=== PATIENT | male | born 1985 | race Two or more races ===

== ENCOUNTER 2018-10-30 15:55 | Inpatient (IN) | payer OTHER ==
[~2018-10-30] VITALS: Ht 172.7 cm; Wt 91.5 kg
[2018-10-30] MEDS ORDERED: SODIUM CHLORIDE FLUSH 10ML SYR IVF ONE (16:00)
[2018-10-30 16:34] LABS: BASOPHILS # (AUTO) 0.01 x10^3/uL (0-0.1); BASOPHILS % (AUTO) 0 % (0-1); EOSINOPHILS % (AUTO) 0 % (1-7); LYMPHOCYTES # (AUTO) 1.05 x10^3/uL (1-3.4); LYMPHOCYTES % (AUTO) 9 % (22-44); MD NO; MEAN CORPUSCULAR HEMOGLOBIN 32.2 pg (27.5-34.5); MEAN CORPUSCULAR HGB CONC 34.3 g/dL (33.2-36.2); MEAN CORPUSCULAR VOLUME 93.8 fL (81-97); MONOCYTES # (AUTO) 0.46 x10^3/uL (0.2-0.8); MONOCYTES % (AUTO) 4 % (2-9); NEUTROPHILS # (AUTO) 9.92 x10^3/uL (1.8-6.8); NEUTROPHILS % (AUTO) 87 % (42-75); PLATELET COUNT 262 x10^3/uL (130-400); RED BLOOD COUNT 5.44 x10^6/uL (4.38-5.82); RED CELL DISTRIBUTION WIDTH 12.9 % (9.4-14.8)
[2018-10-30 16:45] LABS: ALANINE AMINOTRANSFERASE 17 U/L (12-78); ALBUMIN 3.7 g/dL (3.4-5.0); ANION GAP 10 mmol/L (5-15); CALCIUM 9.1 mg/dL (8.5-10.1); CHLORIDE 98 mmol/L (98-107); CREATININE 1.15 mg/dL (0.7-1.3)
[2018-10-30 16:47] LABS: ALKALINE PHOSPHATASE 65 U/L (45-117); BILIRUBIN,TOTAL 0.9 mg/dL (0.2-1.0); TOTAL PROTEIN 8.2 g/dL (6.4-8.2)
[2018-10-30] MEDS ORDERED: OMNIPAQUE 350 MG/ML, 100ML BOTTLE ONE (17:19)
[2018-10-30] MEDS ORDERED: CEFTRIAXONE PMX 1GM/50ML 50 ML ONE (17:54)
[2018-10-30] MEDS ORDERED: METRONIDAZOLE PMX 500MG/100ML 100 ML IV ONE (18:00)
[2018-10-30] MEDS ORDERED: SODIUM CHLORIDE 0.9%, 500ML IVBOLUS ONE (18:00)
[2018-10-30] MEDS ORDERED: CEFTRIAXONE PMX 1GM/50ML 50 ML IV ONE (18:00)
[2018-10-30] MEDS ORDERED: BUPIVACAINE/PF-EPI 0.5% 1:200K ONE (18:25)
[2018-10-30] MEDS ORDERED: BUPIVACAINE/PF-EPI 0.5% 1:200K IM ONE (19:19)
[2018-10-30] MEDS ORDERED: PROPOFOL 10 MG/ML, 20ML ONE (19:43)
[2018-10-30] MEDS ORDERED: ROCURONIUM 10 MG/ML,10ML ONE (19:43)
[2018-10-30] MEDS ORDERED: ONDANSETRON 2MG/ML, 2ML ONE (19:43)
[2018-10-30] MEDS ORDERED: DEXAMETHASONE 4 MG/ML, 1ML ONE (19:43)
[2018-10-30] MEDS ORDERED: GLYCOPYRROLATE 0.2MG/1ML, 5ML ONE (19:43)
[2018-10-30] MEDS ORDERED: SUCCINYLCHOLINE 20 MG/ML, 10ML ONE (19:43)
[2018-10-30] MEDS ORDERED: KETOROLAC 30 MG/1 ML ONE (19:43)
[2018-10-30] MEDS ORDERED: NEOSTIGMINE 1 MG/ML, 10ML ONE (19:43)
[2018-10-30] MEDS ORDERED: FENTANYL PF 100 MCG/2ML ONE ×2 (19:44→19:53)
[2018-10-30] MEDS ORDERED: SCOPOLAMINE PATCH, 1.5MG PATCH.TD72 TD ONE (20:39)
[2018-10-30] MEDS ORDERED: HYDROmorphone 2 MG/ML, 1ML ONE (20:50)
[2018-10-30] MEDS: HYDROmorphone 2 MG/ML, 1ML IVPush PRN ×3 (20:51→21:07)
[2018-10-30] MEDS ORDERED: LABETALOL 5MG/ML, 20ML IV PRN (21:00)
[2018-10-30] MEDS ORDERED: hydrALAzine 20 MG/ML, 1ML IV PRN (21:00)
[2018-10-30] MEDS ORDERED: DIPHENHYDRAMINE 50 MG/ML, 1ML IVPush PRN (21:00)
[2018-10-30] MEDS ORDERED: METOPROLOL 1 MG/ML, 5ML IV PRN (21:00)
[2018-10-30] MEDS ORDERED: MEPERIDINE/PF 25MG/0.5ML IVPush PRN (21:00)
[2018-10-30] MEDS ORDERED: FENTANYL PF 100 MCG/2ML IV PRN (21:00)
[2018-10-30] MEDS ORDERED: SCOPOLAMINE PATCH, 1.5MG PATCH.TD72 TD PRN (21:00)
[2018-10-30] MEDS ORDERED: DIAZEPAM 5 MG/ML, 2ML IVPush PRN (21:00)
[2018-10-30] MEDS ORDERED: OXYcodone 5 MG/5 ML ORAL.SOL UDC PO PRN (21:00)
[2018-10-30] MEDS ORDERED: LORazepam 2 MG/ML, 1ML IVPush PRN (21:00)
[2018-10-30] MEDS ORDERED: PROCHLORPERAZINE 5 MG/ML, 2ML IV PRN (21:00)
[2018-10-30] MEDS ORDERED: PROMETHAZINE 25 MG/ML, 1ML IV PRN (21:00)
[2018-10-30] MEDS ORDERED: HALOPERIDOL 5 MG/ML IV PRN (21:00)
[2018-10-30] MEDS ORDERED: PROMETHAZINE 25 MG/ML, 1ML ONE (21:11)
[2018-10-30] MEDS ORDERED: HYDROcodone/APAP 5/325 TABLET PO PRN (22:30)
[2018-10-30] MEDS ORDERED: LORazepam 2 MG/ML, 1ML IV PRN (22:30)
[2018-10-30] MEDS ORDERED: morphine SULFATE 10 MG/ML, 1ML IV PRN (22:30)
[2018-10-30] MEDS ORDERED: LORazepam 1MG TABLET PO PRN (22:30)
[2018-10-30] MEDS: CEFOTETAN PMX 1GM/50ML 50 ML IVPB SCH (23:10)
[2018-10-30] MEDS: POTASSIUM CHLORIDE 20 MEQ in LACTATED RINGERS 1,000 ML IV SCH (23:49)
[2018-10-30] MEDS: METRONIDAZOLE PMX 500MG/100ML 100 ML IVPB SCH (23:49)
[2018-10-31 03:48] VITALS: BP 114/69
[2018-10-31 05:39] LABS: MEAN CORPUSCULAR HEMOGLOBIN 32.2 pg (27.5-34.5); MEAN CORPUSCULAR VOLUME 94.9 fL (81-97); MEAN PLATELET VOLUME 9.1 fL (7.4-10.4); PLATELET COUNT 217 x10^3/uL (130-400); RED BLOOD COUNT 4.71 x10^6/uL (4.38-5.82); RED CELL DISTRIBUTION WIDTH 13.5 % (9.4-14.8)
[2018-10-31 06:16] LABS: MD YES
[2018-10-31 06:18] LABS: BAND#(MANUAL) 0.96 x10^3/uL; BANDS%(MANUAL) 8 % (0-7); LYMPH#(MANUAL) 1.08 x10^3/uL (1-3.4); LYMPHS% (MANUAL) 9 % (22-44); MONOS#(MANUAL) 0.48 x10^3/uL (0.3-2.7); MONOS% (MANUAL) 4 % (2-9); SEG#(MANUAL) 9.48 x10^3/uL (1.8-6.8); SEGS% (MANUAL) 79 % (42-75)
[2018-10-31 06:19] LABS: <PLATELET ESTIMATE> ADEQUATE; <PLT MORPHOLOGY> NORMAL PLT MORPH; <RBC MORPHOLOGY> NORMAL
[2018-10-31 07:20] VITALS: BP 124/58
[2018-10-31] MEDS: METRONIDAZOLE PMX 500MG/100ML 100 ML IVPB SCH (07:46)
[2018-10-31] MEDS: ENOXAPARIN 40 MG/0.4 ML SQ SCH (07:47)
[2018-10-31] MEDS: HYDROmorphone 2 MG/ML, 1ML IVPush PRN ×3 (08:11→16:32)
[2018-10-31] MEDS: POTASSIUM CHLORIDE 20 MEQ in LACTATED RINGERS 1,000 ML IV SCH ×2 (08:11→16:24)
[2018-10-31] MEDS: CEFOTETAN PMX 1GM/50ML 50 ML IVPB SCH (11:19)
[2018-10-31] MEDS: ONDANSETRON 2MG/ML, 2ML IV PRN ×2 (11:25→19:36)
[2018-10-31 14:25] VITALS: BP 122/71
[2018-10-31 19:19] VITALS: BP 123/92
[2018-10-31] MEDS: OXYcodone/APAP 5/325MG TABLET PO PRN (20:50)
[2018-11-01 00:30] VITALS: BP 123/95
[2018-11-01] MEDS: POTASSIUM CHLORIDE 20 MEQ in LACTATED RINGERS 1,000 ML IV SCH ×3 (00:39→20:57)
[2018-11-01] MEDS ORDERED: CALCIUM CARBONATE 500 MG TAB.CHEW ONE (06:02)
[2018-11-01] MEDS: CEFOTETAN PMX 1GM/50ML 50 ML IV SCH ×2 (06:02→17:31)
[2018-11-01] MEDS: CALCIUM CARBONATE 500 MG TAB.CHEW PO PRN ×2 (06:03→14:03)
[2018-11-01] MEDS: METRONIDAZOLE PMX 500MG/100ML 100 ML IV SCH ×3 (06:52→22:30)
[2018-11-01 07:10] VITALS: BP 125/87
[2018-11-01] MEDS: ENOXAPARIN 40 MG/0.4 ML SQ SCH (08:19)
[2018-11-01 09:11] LABS: MEAN CORPUSCULAR HEMOGLOBIN 31.9 pg (27.5-34.5); MEAN CORPUSCULAR HGB CONC 33.7 g/dL (33.2-36.2); MEAN CORPUSCULAR VOLUME 94.5 fL (81-97); MEAN PLATELET VOLUME 8.6 fL (7.4-10.4); PLATELET COUNT 265 x10^3/uL (130-400); RED BLOOD COUNT 5.07 x10^6/uL (4.38-5.82); RED CELL DISTRIBUTION WIDTH 13.3 % (9.4-14.8)
[2018-11-01] MEDS: OXYcodone/APAP 5/325MG TABLET PO PRN ×2 (09:29→14:04)
[2018-11-01 09:50] LABS: BASOPHILS # (AUTO) 0.01 x10^3/uL (0-0.1); BASOPHILS % (AUTO) 0 % (0-1); EOSINOPHILS # (AUTO) 0.01 x10^3/uL (0-0.4); EOSINOPHILS % (AUTO) 0 % (1-7); LYMPHOCYTES # (AUTO) 0.98 x10^3/uL (1-3.4); LYMPHOCYTES % (AUTO) 8 % (22-44); MD SCAN; MONOCYTES # (AUTO) 0.45 x10^3/uL (0.2-0.8); MONOCYTES % (AUTO) 4 % (2-9); NEUTROPHILS % (AUTO) 89 % (42-75)
[2018-11-01 14:35] VITALS: BP 126/85
[2018-11-01 20:32] VITALS: BP 130/68
[2018-11-02] MEDS: OXYcodone/APAP 5/325MG TABLET PO PRN ×4 (01:56→22:13)
[2018-11-02 02:03] VITALS: BP 126/84
[2018-11-02 05:25] LABS: BASOPHILS # (AUTO) 0.03 x10^3/uL (0-0.1); BASOPHILS % (AUTO) 0 % (0-1); EOSINOPHILS # (AUTO) 0.02 x10^3/uL (0-0.4); EOSINOPHILS % (AUTO) 0 % (1-7); LYMPHOCYTES # (AUTO) 1.26 x10^3/uL (1-3.4); LYMPHOCYTES % (AUTO) 12 % (22-44); MD NO; MEAN CORPUSCULAR HEMOGLOBIN 32.6 pg (27.5-34.5); MEAN CORPUSCULAR HGB CONC 34.1 g/dL (33.2-36.2); MEAN CORPUSCULAR VOLUME 95.7 fL (81-97); MEAN PLATELET VOLUME 8.3 fL (7.4-10.4); MONOCYTES # (AUTO) 0.79 x10^3/uL (0.2-0.8); MONOCYTES % (AUTO) 8 % (2-9); NEUTROPHILS # (AUTO) 8.33 x10^3/uL (1.8-6.8); NEUTROPHILS % (AUTO) 80 % (42-75); PLATELET COUNT 268 x10^3/uL (130-400); RED CELL DISTRIBUTION WIDTH 13.2 % (9.4-14.8)
[2018-11-02] MEDS: CEFOTETAN PMX 1GM/50ML 50 ML IV SCH ×2 (05:46→17:29)
[2018-11-02] MEDS: CALCIUM CARBONATE 500 MG TAB.CHEW PO PRN ×3 (05:48→23:15)
[2018-11-02] MEDS: POTASSIUM CHLORIDE 20 MEQ in LACTATED RINGERS 1,000 ML IV SCH ×2 (06:44→14:45)
[2018-11-02] MEDS: METRONIDAZOLE PMX 500MG/100ML 100 ML IV SCH ×3 (06:44→22:13)
[2018-11-02] MEDS: ENOXAPARIN 40 MG/0.4 ML SQ SCH (07:26)
[2018-11-02 07:35] VITALS: BP 127/88
[2018-11-02 13:10] VITALS: BP 120/84
[2018-11-02 21:07] VITALS: BP 136/90
[2018-11-03 01:35] VITALS: BP 123/81
[2018-11-03 05:32] LABS: MEAN CORPUSCULAR HEMOGLOBIN 32.2 pg (27.5-34.5); MEAN CORPUSCULAR HGB CONC 34.2 g/dL (33.2-36.2); MEAN CORPUSCULAR VOLUME 94.1 fL (81-97); MEAN PLATELET VOLUME 7.9 fL (7.4-10.4); PLATELET COUNT 279 x10^3/uL (130-400); RED BLOOD COUNT 4.49 x10^6/uL (4.38-5.82); RED CELL DISTRIBUTION WIDTH 13.3 % (9.4-14.8)
[2018-11-03 05:42] LABS: CREATININE 0.72 mg/dL (0.7-1.3)
[2018-11-03] MEDS: CEFOTETAN PMX 1GM/50ML 50 ML IV SCH ×2 (05:55→17:27)
[2018-11-03 06:02] LABS: BASOPHILS # (AUTO) 0.01 x10^3/uL (0-0.1); BASOPHILS % (AUTO) 0 % (0-1); EOSINOPHILS # (AUTO) 0.07 x10^3/uL (0-0.4); EOSINOPHILS % (AUTO) 1 % (1-7); LYMPHOCYTES # (AUTO) 0.88 x10^3/uL (1-3.4); LYMPHOCYTES % (AUTO) 14 % (22-44); MD SCAN; MONOCYTES % (AUTO) 11 % (2-9); NEUTROPHILS # (AUTO) 4.89 x10^3/uL (1.8-6.8); NEUTROPHILS % (AUTO) 75 % (42-75)
[2018-11-03] MEDS: METRONIDAZOLE PMX 500MG/100ML 100 ML IV SCH ×3 (06:28→22:25)
[2018-11-03] MEDS: POTASSIUM CHLORIDE 20 MEQ in LACTATED RINGERS 1,000 ML IV SCH ×3 (06:28→16:29)
[2018-11-03 07:38] VITALS: BP 117/77
[2018-11-03] MEDS: ENOXAPARIN 40 MG/0.4 ML SQ SCH (07:56)
[2018-11-03] MEDS: OXYcodone/APAP 5/325MG TABLET PO PRN ×3 (07:56→20:36)
[2018-11-03] MEDS: ONDANSETRON ODT 4 MG PO PRN ×2 (07:56→14:44)
[2018-11-03] MEDS: CALCIUM CARBONATE 500 MG TAB.CHEW PO PRN (11:01)
[2018-11-03 14:39] VITALS: BP 107/75
[2018-11-03 20:06] VITALS: BP 113/71
[2018-11-04] MEDS: OXYcodone/APAP 5/325MG TABLET PO PRN ×3 (00:36→10:16)
[2018-11-04] MEDS: POTASSIUM CHLORIDE 20 MEQ in LACTATED RINGERS 1,000 ML IV SCH ×3 (00:36→21:10)
[2018-11-04 02:45] VITALS: BP 113/72
[2018-11-04] MEDS: CEFOTETAN PMX 1GM/50ML 50 ML IV SCH (05:35)
[2018-11-04] MEDS: METRONIDAZOLE PMX 500MG/100ML 100 ML IV SCH (06:17)
[2018-11-04 07:16] VITALS: BP 116/73
[2018-11-04] MEDS: ENOXAPARIN 40 MG/0.4 ML SQ SCH (08:00)
[2018-11-04] MEDS ORDERED: HYDROcodone/APAP 5/325 TABLET PO PRN (09:00)
[2018-11-04 09:45] LABS: MEAN CORPUSCULAR HEMOGLOBIN 31.8 pg (27.5-34.5); MEAN CORPUSCULAR HGB CONC 33.4 g/dL (33.2-36.2); MEAN CORPUSCULAR VOLUME 95.1 fL (81-97); MEAN PLATELET VOLUME 7.4 fL (7.4-10.4); PLATELET COUNT 344 x10^3/uL (130-400); RED BLOOD COUNT 4.56 x10^6/uL (4.38-5.82); RED CELL DISTRIBUTION WIDTH 13.1 % (9.4-14.8)
[2018-11-04] MEDS: ONDANSETRON ODT 4 MG PO PRN (10:15)
[2018-11-04 10:18] LABS: MD YES
[2018-11-04 10:20] LABS: BAND#(MANUAL) 1.42 x10^3/uL; BANDS%(MANUAL) 20 % (0-7); EOS#(MANUAL) 0.28 x10^3/uL (0.0-0.4); EOS% (MANUAL) 4 % (1-7); LYMPH#(MANUAL) 0.71 x10^3/uL (1-3.4); LYMPHS% (MANUAL) 10 % (22-44); MONOS#(MANUAL) 0.71 x10^3/uL (0.3-2.7); MONOS% (MANUAL) 10 % (2-9); SEG#(MANUAL) 3.98 x10^3/uL (1.8-6.8); SEGS% (MANUAL) 56 % (42-75)
[2018-11-04 10:22] LABS: <PLATELET ESTIMATE> ADEQUATE; <PLT MORPHOLOGY> NORMAL PLT MORPH; <RBC MORPHOLOGY> NORMAL
[2018-11-04] MEDS: CLINDAMYCIN 300 MG CAPSULE PO SCH ×3 (11:09→21:10)
[2018-11-04] MEDS: CEPHALEXIN 500 MG CAPSULE PO SCH ×3 (11:09→21:10)
[2018-11-04 13:16] VITALS: BP 119/80
[2018-11-04] MEDS: ONDANSETRON 2MG/ML, 2ML IV PRN (19:10)
[2018-11-04] MEDS: CALCIUM CARBONATE 500 MG TAB.CHEW PO PRN (19:10)
[2018-11-04 19:17] VITALS: BP 121/78
[2018-11-05 01:22] VITALS: BP 122/76
[2018-11-05] MEDS: POTASSIUM CHLORIDE 20 MEQ in LACTATED RINGERS 1,000 ML IV SCH ×2 (04:05→07:48)
[2018-11-05 05:25] LABS: BASOPHILS # (AUTO) 0.01 x10^3/uL (0-0.1); BASOPHILS % (AUTO) 0 % (0-1); EOSINOPHILS # (AUTO) 0.13 x10^3/uL (0-0.4); EOSINOPHILS % (AUTO) 1 % (1-7); LYMPHOCYTES # (AUTO) 1.14 x10^3/uL (1-3.4); LYMPHOCYTES % (AUTO) 11 % (22-44); MD NO; MEAN CORPUSCULAR HEMOGLOBIN 31.8 pg (27.5-34.5); MEAN CORPUSCULAR HGB CONC 33.8 g/dL (33.2-36.2); MEAN PLATELET VOLUME 7.5 fL (7.4-10.4); MONOCYTES # (AUTO) 0.88 x10^3/uL (0.2-0.8); MONOCYTES % (AUTO) 9 % (2-9); NEUTROPHILS # (AUTO) 8.11 x10^3/uL (1.8-6.8); NEUTROPHILS % (AUTO) 79 % (42-75); PLATELET COUNT 470 x10^3/uL (130-400); RED BLOOD COUNT 4.82 x10^6/uL (4.38-5.82); RED CELL DISTRIBUTION WIDTH 13.4 % (9.4-14.8)
[2018-11-05] MEDS: CEPHALEXIN 500 MG CAPSULE PO SCH ×2 (06:11→10:50)
[2018-11-05] MEDS: CLINDAMYCIN 300 MG CAPSULE PO SCH ×2 (06:11→10:50)
[2018-11-05 07:38] VITALS: BP 120/77
[2018-11-05] MEDS: ENOXAPARIN 40 MG/0.4 ML SQ SCH (07:45)
[2018-11-05] MEDS ORDERED: TRAM50TA2 PO (08:10)
[2018-11-05] MEDS ORDERED: CLIN300C8 PO (08:10)
[2018-11-05] MEDS ORDERED: CEPH-368 PO (08:10)
[2018-11-05] MEDS: ONDANSETRON ODT 4 MG PO PRN (10:46)
[2018-11-05 14:19] VITALS: BP 134/83
== END 2018-11-05 14:24 | disposition home or self-care (01) | DRG 340 ==
LOC: ED 18:02 → EDIP 18:10 → 4NOR 22:13
PROVIDERS: ADMIT Surgery; ATTEND Surgery
PROC: 0DTJ4ZZ Resection of Appendix, Percutaneous Endoscopic Approach (ICD-10-PCS; principal; 2018-10-30 20:00)
DX: K35.32 Acute appendicitis with perforation, localized peritonitis, and gangrene, without abscess (principal); F17.200 Nicotine dependence, unspecified, uncomplicated
CPT/HCPCS: 36415; 99285; J3490; 74177; 80053; 82565; 83690; 85025; 88304; 96374; G0378; J0696; J1100; J1170; J1650; J1885; J2405; J2550; J2704; J2710; J3010; J3480; Q0162; Q9967; J0330; J2060; J7040; J7120